=== PATIENT | female | born 1980 | race Caucasian/White ===

== ENCOUNTER 2017-01-24 05:10 | Inpatient (IN) ==
[2017-01-24] MEDS ORDERED: REGLAN PO ONE (05:13)
[2017-01-24] MEDS ORDERED: PEPCID PO ONE (05:13)
[2017-01-24] MEDS ORDERED: KEFZOL 1 GM/D5W 1 GM/50 ML IVPB IV PRN (05:13)
[2017-01-24] MEDS: LR 1,000 ML IV SCH ×2 (05:50→06:43)
[2017-01-24] MEDS ORDERED: BICITRA PO ONE (06:00)
[2017-01-24 06:13] LABS: MANUAL DIFF NEEDED? NO
[2017-01-24 06:13] LABS: URINE SOURCE VOIDED
[2017-01-24 06:15] LABS: BASO% 0.1 % (0.0-0.8); EOS# 0.09 X1000 (0.0-0.7); EOS% 1.3 % (0.0-10.0); HEMATOCRIT 35.3 % (37.0-47.0); HEMOGLOBIN 11.6 g/dL (12.0-16.0); IMM GRAN# 0.03 X1000 (0.0-0.04); IMM GRAN% 0.4 % (0.0-0.5); LYMPH# 2.07 X1000 (1.2-3.4); LYMPH% 29.9 % (20.5-51.1); MCH 29.5 PG (27-31); MCHC 32.9 g/dL (33-37); MCV 89.8 FL (81-99); MONO% 7.2 % (1.7-9.3); MPV 12.4 FL (7.4-10.4); NEUT% 61.1 % (42.2-75.2); PLT 142 X1000 (130-400); RBC 3.93 XMIL (4.2-5.4)
[2017-01-24] MEDS ORDERED: PEPCID IV ONE (06:15)
[2017-01-24] MEDS ORDERED: REGLAN IV ONE (06:15)
[2017-01-24] MEDS ORDERED: PITOCIN ONE (06:20)
[2017-01-24] MEDS ORDERED: ZOFRAN ONE (06:20)
[2017-01-24 06:21] LABS: BILIRUBIN URINE NEGATIVE (NEGATIVE); BLOOD URINE TRACE (NEGATIVE); CLARITY VERY CLOUDY (CLEAR); COLOR YELLOW; GLUCOSE URINE NEGATIVE (NEGATIVE); LEUKOCYTES URINE 2+ (NEGATIVE); NITRITE URINE NEGATIVE (NEGATIVE); PROTEIN URINE 1+(30 mg/dL) mg/dL (NEGATIVE); SP GRAVITY URINE 1.025; UROBILINOGEN URINE NORMAL
[2017-01-24] MEDS ORDERED: FENTANYL ONE (06:21)
[2017-01-24] MEDS ORDERED: DURAMORPH ONE (06:21)
[2017-01-24] MEDS ORDERED: METHERGINE ONE (06:26)
[2017-01-24] MEDS ORDERED: HEMABATE ONE (06:26)
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
[2017-01-24] MEDS ORDERED: NEO-SYNEPHRINE ONE (07:40)
[2017-01-24] MEDS ORDERED: PITOCIN 20 UNITS/LR 20 UNITS/1,000 ML IV.SOLN ONE (07:51)
[2017-01-24] MEDS ORDERED: DULCOLAX PR PRN (08:27)
[2017-01-24] MEDS ORDERED: MYLICON PO PRN (08:27)
[2017-01-24] MEDS ORDERED: PHENERGAN IM PRN (08:27)
[2017-01-24] MEDS ORDERED: AMBIEN PO PRN (08:27)
[2017-01-24] MEDS ORDERED: HYDROXYZINE PO PRN (08:27)
[2017-01-24] MEDS ORDERED: HYDROXYZINE IM PRN (08:27)
[2017-01-24] MEDS ORDERED: PITOCIN IM PRN (08:27)
[2017-01-24] MEDS ORDERED: PERCOCET-5 PO PRN (08:27)
[2017-01-24] MEDS ORDERED: CYTOTEC PO PRN (08:27)
[2017-01-24] MEDS ORDERED: M-M-R II VACCINE SUBQ ONE (08:27)
[2017-01-24] MEDS ORDERED: BOOSTRIX VACCINE IM ONE (08:27)
[2017-01-24] MEDS ORDERED: PITOCIN 20 UNITS/LR 20 UNITS/1,000 ML IV.SOLN IV ONE (08:27)
[2017-01-24] MEDS ORDERED: DEMEROL PO PRN (08:27)
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
[2017-01-24] MEDS ORDERED: NARCAN INJ PRN (13:00)
[2017-01-24] MEDS ORDERED: ZOFRAN IV PRN ×3 (13:00→13:01)
[2017-01-24] MEDS ORDERED: BENADRYL IV PRN (13:00)
[2017-01-24] MEDS ORDERED: ZOFRAN ODT PO PRN (13:00)
[2017-01-24] MEDS ORDERED: NORCO-5 PO PRN (13:00)
[2017-01-24] MEDS: DILAUDID IV PRN (13:43)
[2017-01-24] MEDS: MYLICON PO SCH ×4 (13:52→20:30)
[2017-01-24] MEDS: PITOCIN 10 UNITS/LR 10 UNIT/1,000 ML IV.SOLN IV SCH ×2 (18:08→23:59)
[2017-01-24] MEDS: PERICOLACE PO SCH (20:30)
[2017-01-25 06:28] LABS: HEMATOCRIT 27.7 % (37.0-47.0); HEMOGLOBIN 8.9 g/dL (12.0-16.0); MCH 29.7 PG (27-31); MCHC 32.1 g/dL (33-37); MCV 92.3 FL (81-99); MPV 12.8 FL (7.4-10.4)
[2017-01-25] MEDS: DILAUDID IV PRN (06:43)
[2017-01-25] MEDS ORDERED: LR 1,000 ML IV SCH (08:27)
[2017-01-25] MEDS: NORCO-10 PO PRN ×2 (12:22→16:09)
[2017-01-25] MEDS: MYLICON PO SCH ×4 (12:23→21:08)
[2017-01-25] MEDS: PERICOLACE PO SCH (21:08)
[2017-01-26] MEDS: PERCOCET-10 PO PRN ×6 (00:17→20:06)
[2017-01-26] MEDS: MYLICON PO SCH ×4 (08:13→20:06)
[2017-01-26] MEDS: PERICOLACE PO SCH (20:06)
[2017-01-27] MEDS: PERCOCET-10 PO PRN ×4 (03:03→16:42)
[2017-01-27] MEDS: MYLICON PO SCH ×2 (08:22→12:47)
[2017-01-27 11:59] VITALS: BP 120/68
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
== END 2017-01-27 17:25 | disposition home or self-care (01) ==
LOC: P.LD 05:10
PROVIDERS: ADMIT Obstetrics & Gynecology; ATTEND Obstetrics & Gynecology